=== PATIENT | female | born 1970 | race Caucasian/White ===

== ENCOUNTER 2016-12-06 10:59 | Emergency (ER) | payer OTHER ==
[2016-12-06] MEDS ORDERED: DIPHENHYDRAMINE 50 MG/ML VIAL ONE (17:05)
[2016-12-06] MEDS ORDERED: METOCLOPRAMIDE 10 MG/2 ML VIAL ONE (17:05)
[2016-12-06] MEDS ORDERED: KETOROLAC 30 MG/ML VIAL ONE (17:05)
== END 2016-12-06 19:06 | disposition home or self-care (01) ==
LOC: ER 10:59
DX: S16.1XXA Strain of muscle, fascia and tendon at neck level, initial encounter (principal); S39.012A Strain of muscle, fascia and tendon of lower back, initial encounter; C44.319 Basal cell carcinoma of skin of other parts of face; V89.2XXA Person injured in unspecified motor-vehicle accident, traffic, initial encounter
CPT/HCPCS: 36415; 70450; 72072; 72100; 72125; 80053; 82553; 84484; 84703; 85025; 93005; 96374; 96375; 99285; J1885

== ENCOUNTER 2016-12-14 10:15 | Emergency (ER) | payer OTHER | END 2016-12-14 13:51 | disposition left against medical advice (07) | LOC: ER 10:15 | DX: Z53.21 Procedure and treatment not carried out due to patient leaving prior to being seen by health care provider (principal) ==